=== PATIENT | male | born 1950 | race Caucasian/White ===

== ENCOUNTER 2024-09-21 16:29 | Emergency (ER) | payer BC ==
[2024-09-21] MEDS ORDERED: Oxymetazoline HCl 0.05% (30 ML BOT) ONE (16:38)
[2024-09-21] MEDS ORDERED: HYDROcodone/Acetaminophen 5/325 mg Tablet ONE (16:53)
[2024-09-21] MEDS ORDERED: Amlodipine 5 MG TAB ONE ×2 (17:33→19:41)
[2024-09-21] MEDS ORDERED: Tranexamic Acid 1,000 MG/10 ML VIAL ONE (17:34)
[2024-09-21 17:47] LABS: INR-International Normal Ratio 1.4
[2024-09-21 17:52] LABS: #Basophils 0.1 thou/uL (0.0-0.2); #Lymphocytes 0.7 thou/uL (1.20-3.40); #Monocytes 0.5 thou/uL (0.11-0.59); #Neutrophils 4.6 thou/uL (1.40-6.50); %Basophils 1.2 % (0.0-1.0); %Eosinophils 0.4 % (0.0-10.0); %Lymphocytes 11.1 % (21.0-51.0); %Monocytes 8.9 % (0.0-10.0); %Neutrophils 78.4 % (42.0-75.0); Hematocrit 39.3 % (42.0-52.0); Hemoglobin 12.9 g/dL (14.0-18.0); Mean Corpuscular HGB CONC 32.9 g/dL (32.0-36.0); Mean Corpuscular Hemoglobin 30.3 pg (27.0-31.0); Mean Corpuscular Volume 92.4 fl (78.0-98.0); Mean Platelet Volume 7.3 fL (7.4-10.4); Platelet Count 204 10x3/uL (130-400); RBC Distribution Width 12.4 % (11.5-14.5); Red Blood Cell (RBC) Count 4.26 mill/uL (4.70-6.10); White Blood Cell (WBC) Count 5.9 10x3/uL (4.8-10.8)
== END 2024-09-21 21:21 | disposition short-term general hospital (02) ==
LOC: NAV ERS 16:29
DX: R04.0 Epistaxis (principal); I10 Essential (primary) hypertension; I48.91 Unspecified atrial fibrillation; Z79.01 Long term (current) use of anticoagulants; Z79.899 Other long term (current) drug therapy
CPT/HCPCS: 30901; 85025; 85610; 85730; 96374